=== PATIENT | male | born 1935 | race Caucasian/White ===

== ENCOUNTER 2023-02-15 07:33 | Outpatient (CLI) | payer MEDICARE, BC | END 2023-02-15 07:34 | disposition home or self-care (01) | LOC: CSHMRI 07:33 | PROVIDERS: ATTEND Psychiatry & Neurology Neurology | DX: R26.9 Unspecified abnormalities of gait and mobility (principal); G93.9 Disorder of brain, unspecified | CPT/HCPCS: 70551 ==